=== PATIENT | male | born 1950 | race Caucasian/White ===

== ENCOUNTER 2020-11-15 12:43 | Emergency (ER) | payer MEDICARE, OTHER ==
[~2020-11-15] VITALS: Ht 172.7 cm; Wt 113.4 kg
== END 2020-11-15 16:30 | disposition home or self-care (01) ==
LOC: ER1 12:43
DX: U07.1 COVID-19 (principal); Z23 Encounter for immunization; I10 Essential (primary) hypertension
CPT/HCPCS: 99284; M0243

== ENCOUNTER → 2020-11-19 | Outpatient (CLI) | payer MEDICARE, OTHER | LOC: EXRD 08:33 | DX: U07.1 COVID-19 (principal); R91.8 Other nonspecific abnormal finding of lung field | CPT/HCPCS: 71046 ==

== ENCOUNTER → 2021-01-04 | Outpatient (CLI) | payer MEDICARE, OTHER | LOC: EXRD 09:10 | DX: R93.89 Abnormal findings on diagnostic imaging of other specified body structures (principal); R91.8 Other nonspecific abnormal finding of lung field | CPT/HCPCS: 71046 ==

== ENCOUNTER → 2021-01-24 | Outpatient (CLI) | payer MEDICARE, OTHER | LOC: EXRD 11:15 | DX: R93.89 Abnormal findings on diagnostic imaging of other specified body structures (principal); M54.50 Low back pain, unspecified; M25.551 Pain in right hip; M25.552 Pain in left hip; M25.78 Osteophyte, vertebrae; M47.814 Spondylosis without myelopathy or radiculopathy, thoracic region | CPT/HCPCS: 72070; 72110; 73522 ==

== ENCOUNTER → 2021-06-08 | Outpatient (CLI) | payer MEDICARE, OTHER | LOC: ECHO 12:50 | DX: I10 Essential (primary) hypertension (principal); I35.8 Other nonrheumatic aortic valve disorders | CPT/HCPCS: ECHO; 93306 ==